=== PATIENT | female | born 1980 | race Caucasian/White ===

== ENCOUNTER → 2020-12-05 09:46 | Outpatient (CLI) | payer BC, SELFPAY ==
[2020-12-05] MEDS: COVID-19 VACC #1, MRNA(MOD) 100 MCG/0.5 ML VIAL IM (09:57)
== END ==
PROVIDERS: Family Provider Obstetrics & Gynecology; Visit Provider Internal Medicine
DX: Z23 Encounter for immunization (principal)
CPT/HCPCS: 0011A; 91301

== ENCOUNTER → 2021-01-02 09:48 | Outpatient (CLI) | payer BC, SELFPAY ==
[2021-01-02] MEDS: COVID-19 VACC #2, MRNA(MOD) 100 MCG/0.5 ML VIAL IM (09:56)
== END ==
PROVIDERS: Family Provider Obstetrics & Gynecology; Visit Provider Internal Medicine
DX: Z23 Encounter for immunization (principal)
CPT/HCPCS: 0012A; 91301